=== PATIENT | male | born 1955 | race Caucasian/White ===

== ENCOUNTER 2018-10-13 08:08 | Outpatient (CLI) | payer OTHER ==
[2018-10-13 09:47] LABS: ALBUMIN 4.2 g/dL (3.2-5.5); ALBUMIN/GLOBULIN RATIO 1.8 (1.0-2.2); ALKALINE PHOSPHATASE 54 IU/L (42-121); ALT ALANINE AMINOTRANSFERASE 37 IU/L (10-60); AST ASPARTATE AMINOTRANSFERASE 27 IU/L (10-42); BILIRUBIN,TOTAL 0.9 mg/dL (0.2-1.0); BUN - BLOOD UREA NITROGEN 16 mg/dL (6-20); CALCIUM 8.8 mg/dL (8.5-10.3); CARBON DIOXIDE - CO2 25 mmol/L (21-32); CHLORIDE 106 mmol/L (101-111); CHOLESTEROL 171 mg/dL; GFR - MDRD 76 (>89); GLUCOSE 97 mg/dL (70-100); HDL CHOLESTEROL 43 mg/dL; LDL CHOLESTEROL,CALCULATED 110 mg/dL; LDL/HDL RATIO 2.6 (<3.6); SODIUM 136 mmol/L (135-145); TOTAL PROTEIN 6.5 g/dL (6.7-8.2); VLDL CHOLESTEROL 18 mg/dL
== END 2018-10-13 08:09 | disposition home or self-care (01) ==
LOC: LAB 08:08
PROVIDERS: ATTEND Nurse Practitioner
DX: E78.5 Hyperlipidemia, unspecified (principal)
CPT/HCPCS: 36415; 80053; 80061; 83721; 84153

== ENCOUNTER 2019-02-02 10:37 | Outpatient (CLI) | payer OTHER ==
--- NOTE | 2019-02-02 12:23 | XRAY Report ---
Reason: IRREGULAR HEART BEATS Procedure Date: 02/02/2019 Accession Number: [id number] / [id number] Procedure: WCP - Chest 2 View X-Ray CPT Code: 89954 FULL RESULT: EXAM: CHEST RADIOGRAPHY EXAM DATE: 02/02/2019 10:47 AM. CLINICAL HISTORY: Irregular heart beats. COMPARISON: None. TECHNIQUE: 2 views. FINDINGS: Lungs/Pleura: No focal opacities evident. No pleural effusion. No pneumothorax. Normal volumes. Mediastinum: Heart and mediastinal contours are unremarkable with the exception of mild borderline cardiomegaly. Other: None. IMPRESSION: Mild borderline cardiomegaly. RADIA
== END 2019-02-02 10:38 | disposition home or self-care (01) ==
LOC: DI.WCP 10:37
PROVIDERS: ATTEND Family Medicine
DX: I49.9 Cardiac arrhythmia, unspecified (principal); I51.7 Cardiomegaly; N40.1 Benign prostatic hyperplasia with lower urinary tract symptoms
CPT/HCPCS: 36415; 71046; 80053; 80061; 82553; 84153; 84443; 84484; 85025; 85379

== ENCOUNTER 2019-08-16 14:47 | Outpatient (CLI) | payer OTHER ==
--- NOTE | 2019-08-17 08:45 | XRAY Report ---
Reason: LUMBAR RADICULOPATHY Procedure Date: 08/16/2019 Accession Number: [id number] / [id number] Procedure: XRN - Lumbar Spine Complete CPT Code: FULL RESULT: EXAM: LUMBOSACRAL SPINE RADIOGRAPHY EXAM DATE: 08/16/2019 03:17 PM. CLINICAL HISTORY: LUMBAR RADICULOPATHY. COMPARISONS: LUMBAR SPINE 2 VIEW 09/18/2016 2:14 PM. TECHNIQUE: 5 views. FINDINGS: Alignment: Normal. No spondylolisthesis or scoliosis. Bones: Five wcw-gix-vytcinv lumbar vertebral bodies are present. No fractures or bone lesions. Disks: Mild to moderate disk height loss at multiple levels, worst at L4-L5 and L5-S1. Endplate sclerosis and osteophytosis most prominent at L4-L5 and L5-S1.. Facets: Mild facet hypertrophy at L4-L5 and L5-S1. Sacroiliac Joints: Unremarkable. Soft Tissues: Mild aortic calcification. IMPRESSION: 1. Moderate facet and diskogenic degenerative changes at L4-L5 and L5-S1. RADIA
--- NOTE | 2019-08-17 10:19 | XRAY Report ---
Reason: SHOULDER JOINT PAIN Procedure Date: 08/16/2019 Accession Number: [id number] / [id number] Procedure: XRN - Shoulder 2 View LT CPT Code: FULL RESULT: EXAM: LEFT SHOULDER RADIOGRAPHY EXAM DATE: 08/16/2019 03:17 PM. CLINICAL HISTORY: SHOULDER JOINT PAIN. COMPARISON: None. TECHNIQUE: 2 views. FINDINGS: Bones: Normal. No fracture or bone lesion. Joints: The glenohumeral and acromioclavicular joints are normal. Soft tissues: The visualized hemithorax is unremarkable. No soft tissue swelling. IMPRESSION: Normal shoulder 2 view radiography. RADIA
== END 2019-08-16 14:48 | disposition home or self-care (01) ==
LOC: DI.N 14:47
PROVIDERS: ATTEND Family Medicine
DX: M51.36 Other intervertebral disc degeneration, lumbar region (principal); M51.37 Other intervertebral disc degeneration, lumbosacral region; M47.816 Spondylosis without myelopathy or radiculopathy, lumbar region; M47.817 Spondylosis without myelopathy or radiculopathy, lumbosacral region; M25.512 Pain in left shoulder
CPT/HCPCS: 72110

== ENCOUNTER 2019-08-17 14:30 | Outpatient (CLI) | payer OTHER ==
[2019-08-17 12:29] LABS: BASOPHILS # (AUTO) 0.1 10^3/uL (0.0-0.1); BASOPHILS % (AUTO) 0.3 %; EOSINOPHILS # (AUTO) 0.1 10^3/uL (0.0-0.7); EOSINOPHILS % (AUTO) 0.3 %; HGB - HEMOGLOBIN 14.7 g/dL (14.0-18.0); LYMPHOCYTES # (AUTO) 20.1 10^3/uL (1.5-3.5); LYMPHOCYTES % (AUTO) 87.4 %; MEAN CORPUSCULAR HEMOGLOBIN 33.6 pg (27.0-31.0); MEAN CORPUSCULAR HGB CONC 33.6 g/dL (32.0-36.0); MEAN PLATELET VOLUME 9.7 fL (7.4-11.4); MONOCYTES # (AUTO) 0.9 10^3/uL (0.0-1.0); NEUTROPHILS # (AUTO) 1.8 10^3/uL (1.5-6.6); NEUTROPHILS % (AUTO) 7.8 %; PLT - PLATELET COUNT 198 10^3/uL (130-450); RED BLOOD COUNT 4.37 10^6/uL (4.70-6.10); RED CELL DISTRIBUTION WIDTH 13.2 % (12.0-15.0)
[2019-08-17 12:43] LABS: ALBUMIN 4.3 g/dL (3.2-5.5); ALBUMIN/GLOBULIN RATIO 1.6 (1.0-2.2); ALKALINE PHOSPHATASE 49 IU/L (42-121); ALT ALANINE AMINOTRANSFERASE 29 IU/L (10-60); AST ASPARTATE AMINOTRANSFERASE 23 IU/L (10-42); BILIRUBIN,TOTAL 0.7 mg/dL (0.2-1.0); BUN - BLOOD UREA NITROGEN 17 mg/dL (6-20); CALCIUM 9.8 mg/dL (8.5-10.3); CARBON DIOXIDE - CO2 27 mmol/L (21-32); CHLORIDE 107 mmol/L (101-111); CHOL/HDL RATIO 3.9 (<5.0); CHOLESTEROL 170 mg/dL; CREATININE 1.2 mg/dL (0.6-1.2); GFR - MDRD 61 (>89); GLUCOSE 88 mg/dL (70-100); HDL CHOLESTEROL 44 mg/dL; LDL CHOLESTEROL,CALCULATED 106 mg/dL; LDL/HDL RATIO 2.4 (<3.6); SODIUM 141 mmol/L (135-145); VLDL CHOLESTEROL 20 mg/dL
== END 2019-08-17 23:59 | disposition home or self-care (01) ==
LOC: LAB.N 14:30
PROVIDERS: ATTEND Family Medicine
DX: E78.5 Hyperlipidemia, unspecified (principal); N40.1 Benign prostatic hyperplasia with lower urinary tract symptoms
CPT/HCPCS: 36415; 80053; 80061; 83721; 84153; 84443; 85025

== ENCOUNTER 2021-02-14 08:00 | Outpatient (CLI) | payer OTHER ==
[2021-02-14 12:44] LABS: CHOL/HDL RATIO 3.4 (<5.0); CHOLESTEROL 149 mg/dL; HDL CHOLESTEROL 44 mg/dL; LDL CHOLESTEROL,CALCULATED 88 mg/dL; TRIGLYCERIDES 84 mg/dL; VLDL CHOLESTEROL 17 mg/dL
== END 2021-02-14 23:59 | disposition home or self-care (01) ==
LOC: LAB.WCP 08:00
PROVIDERS: ATTEND Family Medicine
DX: E78.5 Hyperlipidemia, unspecified (principal); Z12.5 Encounter for screening for malignant neoplasm of prostate
CPT/HCPCS: 36415; 80061; 83721; 84153

== ENCOUNTER 2022-02-26 13:43 | Outpatient (CLI) | payer OTHER ==
[2022-02-26 18:08] LABS: ALBUMIN 4.5 g/dL (3.2-5.5); ALBUMIN/GLOBULIN RATIO 2.1 (1.0-2.2); ALKALINE PHOSPHATASE 39 IU/L (42-121); ALT ALANINE AMINOTRANSFERASE 19 IU/L (10-60); AST ASPARTATE AMINOTRANSFERASE 17 IU/L (10-42); BILIRUBIN,TOTAL 0.8 mg/dL (0.2-1.0); BUN - BLOOD UREA NITROGEN 18 mg/dL (6-20); CALCIUM 9.7 mg/dL (8.5-10.3); CARBON DIOXIDE - CO2 27 mmol/L (21-32); CHLORIDE 104 mmol/L (101-111); CHOL/HDL RATIO 2.7 (<5.0); CHOLESTEROL 141 mg/dL; CREATININE 0.9 mg/dL (0.6-1.2); GFR - MDRD 85 (>89); GLUCOSE 90 mg/dL (70-100); HDL CHOLESTEROL 52 mg/dL; LDL CHOLESTEROL,CALCULATED 78 mg/dL; LDL/HDL RATIO 1.5 (<3.6); POTASSIUM 4.3 mmol/L (3.5-5.0); SODIUM 139 mmol/L (135-145); TOTAL PROTEIN 6.6 g/dL (6.7-8.2); TRIGLYCERIDES 57 mg/dL; VLDL CHOLESTEROL 11 mg/dL
[2022-02-26 18:25] LABS: BASOPHILS % (AUTO) 0.3 %; EOSINOPHILS % (AUTO) 0.5 %; HCT - HEMATOCRIT 41.1 % (42.0-52.0); HGB - HEMOGLOBIN 13.9 g/dL (14.0-18.0); MEAN CORPUSCULAR HEMOGLOBIN 33.6 pg (27.0-31.0); MEAN CORPUSCULAR HGB CONC 33.8 g/dL (32.0-36.0); MEAN CORPUSCULAR VOLUME 99.3 fL (80.0-94.0); MEAN PLATELET VOLUME 10.2 fL (7.4-11.4); NEUTROPHILS % (AUTO) 7.1 %; PLT - PLATELET COUNT 169 10^3/uL (130-450); RED BLOOD COUNT 4.14 10^6/uL (4.70-6.10); RED CELL DISTRIBUTION WIDTH 13.3 % (12.0-15.0); WHITE BLOOD COUNT 17.6 x10^3/uL (4.8-10.8)
[2022-02-26 18:30] LABS: ABNORMAL LYMPHS % (MANUAL) 0 %; BAND NEUTROPHILS % (MANUAL) 0 %
[2022-02-26 18:57] LABS: LYMPHOCYTES # (MANUAL) 15.1 10^3/uL (1.5-3.5); LYMPHOCYTES % (MANUAL) 68 %; NEUTROPHILS # (MANUAL) 2.5 10^3/uL (1.5-6.6); REACTIVE LYMPHS % (MANUAL) 18 %
[2022-02-26 18:58] LABS: DIFFERENTIAL COMMENT MANUAL DIFFERENTIAL; PLATELET ESTIMATE, MANUAL NORMAL (130-450,000) (NORMAL); PLATELET MORPHOLOGY NORMAL APPEARANCE (NORMAL); RBC MORPHOLOGY (MULTIPLE) NORMAL APPEARANCE (NORMAL); WBC MORPHOLOGY (MULTIPLE) NORMAL APPEARANCE (NORMAL)
== END 2022-02-26 13:44 | disposition home or self-care (01) ==
LOC: LAB.N 13:43
PROVIDERS: ATTEND Family Medicine
DX: C91.10 Chronic lymphocytic leukemia of B-cell type not having achieved remission (principal); E78.5 Hyperlipidemia, unspecified; Z12.5 Encounter for screening for malignant neoplasm of prostate
CPT/HCPCS: 36415; 80053; 80061; 83721; 84153; 85025

== ENCOUNTER 2022-02-26 13:51 | Outpatient (CLI) | payer OTHER ==
--- NOTE | 2022-02-26 14:23 | XRAY Report ---
PROCEDURE: Knee 4 View RT INDICATIONS: R KNEE PX TECHNIQUE: 4 views of the right knee(s) were acquired. COMPARISON: None. FINDINGS: BONES/JOINT: No acute, displaced fracture or dislocation. Small suprapatellar joint effusion.Small suarez perior patellar enthesophyte. Mild tricompartment osteophytosis. Mild narrowing of the medial compart ment joint space. SOFT TISSUES: No significant abnormality. IMPRESSION: 1.No acute osseous abnormality. Reviewed by: Wilfredo Joe MD on 02/26/2022 2:22 PM PDT Approved by: Wilfredo Joe MD on 02/26/2022 2:22 PM PDT Station ID: [id number]
== END 2022-02-26 13:52 | disposition home or self-care (01) ==
LOC: DI.N 13:51
PROVIDERS: ATTEND Family Medicine
DX: M25.561 Pain in right knee (principal); C91.10 Chronic lymphocytic leukemia of B-cell type not having achieved remission; E78.5 Hyperlipidemia, unspecified; Z12.5 Encounter for screening for malignant neoplasm of prostate
CPT/HCPCS: 36415; 80053; 80061; 83721; 84153; 85025

== ENCOUNTER 2022-12-04 12:01 | Outpatient (CLI) | payer MEDICARE ==
--- NOTE | 2022-12-05 10:33 | XRAY Report ---
PROCEDURE: Hip w/Pelvis 2-3V LT INDICATIONS: HIP JOINT PAIN TECHNIQUE: AP pelvis with lateral view(s) of the bilateral hip(s). COMPARISON: None. FINDINGS: Mild to moderate bilateral hip osteoarthritis with joint space narrowing and marginal osseous proptos is. Pincer-type FREDO morphology bilaterally, right greater than left. Inferior sacroiliac joint osteop hytosis and joint space narrowing, left greater than right. IMPRESSION: Moderate bilateral hip osteoarthritis, fairly symmetric. Pincer-type FREDO morphology bilaterally, right greater than left. Moderate inferior sacroiliac joint osteoarthritic changes, left greater than right Reviewed by: Jamaal Willis MD on 12/05/2022 10:31 AM PST Approved by: Jamaal Willis MD on 12/05/2022 10:31 AM PST Station ID: [id number]
== END 2022-12-04 12:02 | disposition home or self-care (01) ==
LOC: DI 12:01
PROVIDERS: ATTEND Family Medicine
DX: M16.0 Bilateral primary osteoarthritis of hip (principal); M47.898 Other spondylosis, sacral and sacrococcygeal region; M25.851 Other specified joint disorders, right hip; M25.852 Other specified joint disorders, left hip

== ENCOUNTER 2023-10-22 09:12 | Outpatient (CLI) | payer MEDICARE ==
--- NOTE | 2023-10-22 09:50 | Sleep Patient Instructions ---
Sleep Center Visit Summary - Patient Visit Information Reason for Visit: Initial consult for evaluation of sleep disordered breathing and other sleep issues. - Patient Instructions Instructions Attached: Sleep Study Additional Instructions: You will be completing a sleep study, either an in-lab polysomnography (PSG) or home sleep study (HST). You will follow-up in the sleep care office after the sleep study is completed to hear the results and talk about therapy, if needed. You will be called by our office staff to schedule this appointment, but you may contact us with any questions. - Clinic Information Contact: [facility] [address] [place] [address] [email or web address] T: [phone]
[2023-10-22 09:54] VITALS: BP 117/75; O2SAT 97
--- NOTE | 2023-10-22 09:54 | SLEEP CARE CONSULTATION ---
Information from patient questionnaire entered by Erwin Younger. I have reviewed and concur with the information entered by Erwin Younger. This document represents the service I personally performed and the decisions made by me, Gely Rosas ARNP. History of Present Illness Service Date and Time: 10/22/2023911 Reason for Visit: New patient, Previously diagnosed sleep apnea Chief Complaint: reports: Unrefreshed sleep, Snoring Date of Onset: YRS Usual bedtime: 10PM Time it takes to fall asleep: VARIES Snores at night: Yes Observed to quit breathing while asleep: No Sleeps alone due to snoring: Yes Number of times waking at night: 2 Reasons for waking at night: reports: Pain, Bathroom. denies: Choking, Gasping for air Toss, Turn, or Twitch while sleeping: No Recalls having dreams: No Usually gets out of bed at: 0630 Feels refreshed in the morning: No Morning headache: No Sleepy or fatigued during the day: No Ever fallen asleep while driving: No Takes day naps: No Dreams during day naps: No Prior sleep studies: Yes Additional HPI information: I had the pleasure of seeing HAYDER MOSES today regarding the possibility of him having a sleep disorder. He was last seen in our office in 2005 with diagnosis of mild obstructive sleep apnea. His current complaints are unrefreshed sleep and snoring. His says he is snoring loudly at night and is disturbing her sleep. She has not mentioned him stopping breathing. He says his is not always rested in the morning. He has pain in his IT band that will also disturb his sleep at night. He is moving a lot in bed to get comfortable. - Parasomnia Symptoms Ever been unable to move upon waking from sleep: No Walks in sleep: No Talks in sleep: No Ever acted out dreams in sleep: No Ever felt weak in the knees when startled or emotional: No Bothered by creepy, crawly, restless sensations in legs: No Problems with memory or concentration: No Subjective Initial [place] Sleepiness Scale score: 2 (10/22/23) Past Medical History Past Medical History: reports: Other (CLL) Social History The patient's occupation is a RE. Patient is and lives in [place]. Have you smoked in the past 12 months: No Alcohol use: No Caffeine use: Yes Caffeine amount and frequency: 2 CUPS COFFEE QAM Family History Family history of sleep disordered breathing: Yes Family Hx Sleep Apnea: Father: Sleep apnea - Treated Allergies and Home Medications Known drug allergies: Yes (morphine) Drug allergies reviewed: Yes Home medication list reviewed: Yes (Naproxen, 500 mg as needed for leg pain) Allergy and home medication list: Allergies morphine Adverse Reaction (Unknown, Verified 10/21/23 08:46) Headache Home Medications Medication Instructions Recorded Confirmed Last Taken Type Atorvastatin Calcium [Lipitor] 20 mg PO DAILY 04/15/13 10/22/23 04/14/13 History Finasteride 5 mg PO DAILY MDD 4 04/15/13 10/22/23 04/14/13 History Doxazosin [Cardura] 4 mg PO DAILY 09/30/21 10/22/23 Unknown History Mecobalamin [B12 Active] See Rx Instructions .ROUTE .COMPLEX 10/22/23 10/22/23 Unknown History Zinc Gluconate [Zinc] See Rx Instructions .ROUTE .COMPLEX 10/22/23 10/22/23 Unknown History Review of Systems Weight gain over past 5 years: 20 Weight loss over past 5 years: 30 Cardiovascular: denies: high blood pressure Gastrointestinal: denies: heartburn Urinary: reports: frequency Psychiatric: denies: anxiety, depression Ear/Nose/Throat: reports: sinus problems, wisdom teeth removed. denies: tonsillectomy Musculoskeletal: reports: other (TIGHT IT BAND) Immunologic: reports: sneezing Physical Exam Vital signs obtained and entered by: ERWIN Ye MA Blood Pressure: 117/75 (LEFT ARM) Cuff size: regular Heart Rate: 68 O2 Saturation: 97 Height: 5 ft 9 in Weight: 202 lb 3.2 oz (with clothes/shoes on) Body Mass Index: 29.8 BMI Classification: Overweight Neck circumference: 17 Septum: midline Mouth and throat: narrow oropharynx Soft palate: long Hard palate: normal Uvula: normal Uvula visualization: 0% Mallampati Class IV Tonsils: small Neck: normal w/o lymphadenopathy or thyromegaly Heart: regular rate and rhythm, murmur Lungs: clear bilaterally Extremities: no edema or clubbing Impression and Plan 1. Suspected Obstructive Sleep Apnea-Hypopnea Syndrome, as previously diagnosed and as still suggested by a history of loud and irregular snoring and unrefreshed sleep. Narrow oropharynx and obesity are common predisposing factors for obstructive sleep apnea-hypopnea syndrome. I recommend proceeding to polysomnography to confirm the diagnosis and to assess severity. If the patient has significant sleep disordered breathing, a manual CPAP titration study will also be performed to find the optimal treatment pressure. I informed the patient of what the sleep studies involve and after some discussion, obtained agreement to proceed. The pathophysiology of obstructive sleep apnea-hypopnea syndrome was discussed with the patient and health risks of cardiovascular and cerebrovascular disease if not treated. Risks of drowsy driving discussed in detail and patient advised to avoid long distance driving and to tack puller at the first sign of drowsiness. Patient agreed to plan. * Schedule polysomnography. * Avoid long distance driving or driving when feeling sleepy. * Avoid alcohol, sedative and muscle relaxant around bedtime. * Attempt to lose weight. * Review instructions provided by trained office staff on how to prepare for the sleep study. * Return for follow-up after sleep study completed. Counseling Topics: Weight loss health impact Plan: PSG Visit Type: In Office Time Spent with Patient (minutes): 24 Provider Statement: I spent 100% of the Face to Face Visit with the patient with greater than 50% spent counseling the patient and coordination of care.
== END 2023-10-22 09:13 | disposition home or self-care (01) ==
LOC: SC 09:12
PROVIDERS: ATTEND Nurse Practitioner Family
DX: G47.33 Obstructive sleep apnea (adult) (pediatric) (principal); E66.3 Overweight; Z68.29 Body mass index [BMI] 29.0-29.9, adult
CPT/HCPCS: 99202; G0463; 99212

== ENCOUNTER 2024-03-07 07:26 | Outpatient (CLI) | payer MEDICARE ==
[2024-03-07 07:42] LABS: BASOPHILS % (AUTO) 0.2 %; EOSINOPHILS % (AUTO) 0.7 %; HCT - HEMATOCRIT 41.1 % (42.0-52.0); HGB - HEMOGLOBIN 13.7 g/dL (14.0-18.0); LYMPHOCYTES % (AUTO) 92.7 %; MEAN CORPUSCULAR HEMOGLOBIN 33.6 pg (27.0-31.0); MEAN CORPUSCULAR HGB CONC 33.3 g/dL (32.0-36.0); MEAN CORPUSCULAR VOLUME 100.7 fL (80.0-94.0); MEAN PLATELET VOLUME 9.7 fL (7.4-11.4); MONOCYTES % (AUTO) 0.5 %; NEUTROPHILS % (AUTO) 5.9 %; PLT - PLATELET COUNT 136 10^3/uL (130-450); RED BLOOD COUNT 4.08 10^6/uL (4.70-6.10); RED CELL DISTRIBUTION WIDTH 13.3 % (12.0-15.0); WHITE BLOOD COUNT 21.1 x10^3/uL (4.8-10.8)
[2024-03-07 07:46] LABS: ABNORMAL LYMPHS % (MANUAL) 0 %
[2024-03-07 08:09] LABS: ALBUMIN 4.3 g/dL (3.2-5.5); ALBUMIN/GLOBULIN RATIO 3.1 (1.0-2.2); ALKALINE PHOSPHATASE 44 IU/L (42-121); ALT ALANINE AMINOTRANSFERASE 16 IU/L (10-60); AST ASPARTATE AMINOTRANSFERASE 14 IU/L (10-42); BILIRUBIN,TOTAL 0.7 mg/dL (0.2-1.0); BUN - BLOOD UREA NITROGEN 15 mg/dL (6-20); CALCIUM 9.5 mg/dL (8.5-10.3); CARBON DIOXIDE - CO2 27 mmol/L (21-32); CHLORIDE 109 mmol/L (101-111); CHOL/HDL RATIO 3.2 (<5.0); CHOLESTEROL 143 mg/dL; CREATININE 1.1 mg/dL (0.6-1.3); GFR - MDRD 67 (>89); GLUCOSE 96 mg/dL (74-104); HDL CHOLESTEROL 45 mg/dL; LDL CHOLESTEROL,CALCULATED 81 mg/dL; LDL/HDL RATIO 1.8 (<3.6); POTASSIUM 4.1 mmol/L (3.5-4.5); SODIUM 140 mmol/L (135-145); TOTAL PROTEIN 5.7 g/dL (6.4-8.9); TRIGLYCERIDES 87 mg/dL (48-352); VLDL CHOLESTEROL 17 mg/dL
[2024-03-07 08:16] LABS: BAND NEUTROPHILS % (MANUAL) 1 %; EOSINOPHILS # (MANUAL) 0.4 10^3/uL (0-0.7); LYMPHOCYTES # (MANUAL) 18.8 10^3/uL (1.5-3.5); LYMPHOCYTES % (MANUAL) 69 %; MONOCYTES # (MANUAL) 0.2 10^3/uL (0.0-1.0); NEUTROPHILS # (MANUAL) 1.7 10^3/uL (1.5-6.6); NUCLEATED RBC (MANUAL) 1 %; REACTIVE LYMPHS % (MANUAL) 20 %
[2024-03-07 08:17] LABS: DIFFERENTIAL COMMENT MANUAL DIFFERENTIAL; WBC MORPHOLOGY (MULTIPLE) 1+ SMUDGE CELLS (NORMAL)
[2024-03-07 08:22] LABS: THYROID STIMULATING HORMONE 2.99 uIU/mL (0.34-5.60)
== END 2024-03-07 07:27 | disposition home or self-care (01) ==
LOC: LAB 07:26
PROVIDERS: ATTEND Family Medicine
DX: M16.12 Unilateral primary osteoarthritis, left hip (principal); Z12.5 Encounter for screening for malignant neoplasm of prostate; J32.0 Chronic maxillary sinusitis; K59.09 Other constipation; M54.16 Radiculopathy, lumbar region; M51.36 Other intervertebral disc degeneration, lumbar region; C91.10 Chronic lymphocytic leukemia of B-cell type not having achieved remission; E78.5 Hyperlipidemia, unspecified; N40.1 Benign prostatic hyperplasia with lower urinary tract symptoms; N13.8 Other obstructive and reflux uropathy; G47.30 Sleep apnea, unspecified
CPT/HCPCS: 36415; 80053; 80061; 84443; 85025; G0103; 83721; 84153

== ENCOUNTER 2024-03-23 11:30 | Outpatient (CLI) | payer MEDICARE ==
--- NOTE | 2024-03-23 13:33 | XRAY Report ---
PROCEDURE: Lumbar Spine 2-3V INDICATIONS: LUMBAGO WITH SCIATICA, LEFT SIDE TECHNIQUE: 2 views of the lumbar spine were acquired. COMPARISON: 08/16/2019. FINDINGS: Bones: 5 vqa-sny-ylpaliy vertebrae are present. Straightening of the normal lumbar lordosis. There a re multilevel degenerative changes of the lumbar spine with facet arthropathy and disc height loss wi th degenerative endplate changes and marginal spurring. No vertebral body compression fractures. No suspicious bony lesions. Soft tissues: Overlying bowel gas pattern is normal. No suspicious soft tissue calcifications. Athe rosclerotic gastric calcifications. IMPRESSION: Moderate multilevel degenerative changes of the lumbar spine. Reviewed by: Didier Chavarria MD on 03/23/2024 1:32 PM PDT Approved by: Didier Chavarria MD on 03/23/2024 1:32 PM PDT Station ID: [id number]
== END 2024-03-23 11:45 | disposition home or self-care (01) ==
LOC: DI.N 11:30
PROVIDERS: ATTEND Physician Assistant Medical
DX: M47.26 Other spondylosis with radiculopathy, lumbar region (principal)